=== PATIENT | male | born 1975 | race Caucasian/White ===

== ENCOUNTER 2016-09-21 22:04 | Emergency (ER) | payer OTHER ==
[2016-09-21] MEDS ORDERED: DUONEB INH ONE (22:37)
[2016-09-21] MEDS ORDERED: AZITHROMYCIN 250 MG TAB ONE (23:04)
[2016-09-21] MEDS ORDERED: PREDNISONE 10 MG TAB ONE (23:04)
[2016-09-21] MEDS ORDERED: PREDNISONE 50 MG TAB ONE (23:05)
== END 2016-09-22 00:28 | disposition home or self-care (01) ==
LOC: ER 22:04
DX: J20.9 Acute bronchitis, unspecified (principal)
CPT/HCPCS: 36415 ×2; 71010 ×2; 80053 ×2; 82553 ×2; 83880 ×2; 84484 ×2; 85025 ×2; 93005 ×2; 94640 ×2; 99285; J7512